=== PATIENT | female | born 1950 | race Caucasian/White ===

== ENCOUNTER 2021-12-19 12:19 | Emergency (ER) | payer MEDICARE ==
[2021-12-19 14:18] LABS: HEMOGLOBIN 11.1 gm/dl (12.3-15.3); RED BLOOD COUNT 3.72 M/UL (4.00-5.10); WHITE BLOOD COUNT 14.9 K/UL (4.5-11.0)
[2021-12-19 14:43] LABS: BUN/CREATININE RATIO 45 (0-10)
== END 2021-12-19 17:45 | disposition home or self-care (01) ==
LOC: ER1 12:19
PROVIDERS: Emergency Medicine
DX: U07.1 COVID-19 (principal); E11.9 Type 2 diabetes mellitus without complications; M54.6 Pain in thoracic spine; G89.29 Other chronic pain
CPT/HCPCS: 71045; 80053; 82550; 82553; 84439; 84443; 84484; 85025; 87040; 93005; 99284; J1644; J7040; U0002